=== PATIENT | male | born 1985 | race Caucasian/White ===

== ENCOUNTER 2017-08-21 11:35 | Emergency (ER) | payer SELFPAY ==
[2017-08-21 11:47] VITALS: BP 150/80
--- NOTE | 2017-08-21 11:51 | ER Document Report ---
HPI - HPI Patient complains to provider of: painful mouth sore Onset: Last week Onset/Duration: Persistent Pain Level: 2 Context: 31 yo male with painful mouth sore right side under tongue on the ginginva. Associated Symptoms: None Exacerbated by: Other - eating Relieved by: Denies Similar symptoms previously: No Recently seen / treated by doctor: No - ROS ROS below otherwise negative: Yes Systems Reviewed and Negative: Yes All other systems reviewed and negative Past Medical History - General Information source: Patient - Social History Smoking Status: Current Every Day Smoker Frequency of alcohol use: None Drug Abuse: None Lives with: Family Family History: Reviewed & Not Pertinent - Medical History Medical History: Negative Surgical Hx: Negative - Immunizations Hx Diphtheria, Pertussis, Tetanus Vaccination: Yes Vertical Provider Document - CONSTITUTIONAL Agree With Documented VS: Yes Exam Limitations: No Limitations General Appearance: No Apparent Distress - INFECTION CONTROL TRAVEL OUTSIDE OF THE [place] IN LAST 30 DAYS: No - HEENT Notes: inflamed ulcer under right side tongue on the base of the gingiva adjacent to 2nd molar - NECK Neck: Supple. negative: Lymphadenopathy-Right - NEURO Level of Consciousness: Awake - DERM Notes: see above Course - Vital Signs Vital signs: Temp Pulse Resp BP Pulse Ox 98.7 F 66 16 150/80 H 97 08/21/17 11:46 08/21/17 11:46 08/21/17 11:46 08/21/17 11:46 08/21/17 11:46 Discharge - Discharge Clinical Impression: right apthous ulcer Condition: Good Disposition: HOME, SELF-CARE Instructions: Mouth Sores ([facility]) Additional Instructions: Lidocaine to numb the canker sore (apthous ulcer) See the dentist if persists after 1 more week Tylenol for pain return to the emergency room any concerns or worsening of symptoms
[2017-08-21] MEDS ORDERED: LIDOCAINE 2% VISCOUS SOLN 20 ML UDCUP PO ONE (12:04)
== END 2017-08-21 12:20 | disposition home or self-care (01) ==
LOC: ER 11:35
DX: K12.0 Recurrent oral aphthae (principal); K08.89 Other specified disorders of teeth and supporting structures; K13.79 Other lesions of oral mucosa; F17.200 Nicotine dependence, unspecified, uncomplicated
CPT/HCPCS: 99282; J3490

== ENCOUNTER 2018-12-03 10:39 | Emergency (ER) | payer OTHER ==
[2018-12-03] MEDS ORDERED: LIDOCAINE 1%/EPINEPHRINE INJ 20 ML VIAL INJ ONE (12:30)
[2018-12-03] MEDS ORDERED: ACETAMINOPHEN 325 MG TABLET PO ONE (12:31)
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
[2018-12-03 13:30] VITALS: BP 121/78
== END 2018-12-03 13:30 | disposition home or self-care (01) ==
LOC: ER 10:39
DX: S09.90XA Unspecified injury of head, initial encounter (principal); S01.81XA Laceration without foreign body of other part of head, initial encounter; W20.8XXA Other cause of strike by thrown, projected or falling object, initial encounter; Y99.0 Civilian activity done for income or pay; F17.200 Nicotine dependence, unspecified, uncomplicated
CPT/HCPCS: 99283; 70486; 12011; J3490

== ENCOUNTER 2018-12-09 14:14 | Emergency (ER) | payer SELFPAY ==
[2018-12-09 14:19] VITALS: BP 133/82
--- NOTE | 2018-12-09 14:55 | ER Document Report ---
HPI - HPI Time Seen by Provider: 12/09/18 14:43 Pain Level: 0 Context: Patient is a 33-year-old male who presents to the emergency department with a chief complaint of suture removal. Patient states he had 3 sutures placed right below the left eye on Monday. Patient reports he has not had any drainage, swelling, redness or fever. Patient has no complaints. - CONSTITUTIONAL Constitutional: DENIES: Fever, Chills - EENT EENT: DENIES: Sore Throat, Ear Pain, Eye problems - NEURO Neurology: DENIES: Headache, Weakness, Vision blurred, Dizzinesss / Vertigo - CARDIOVASCULAR Cardiovascular: DENIES: Chest pain - RESPIRATORY Respiratory: DENIES: Trouble Breathing, Coughing - GASTROINTESTINAL Gastrointestinal: DENIES: Abdominal Pain, Black / Bloody Stools - URINARY Urinary: DENIES: Dysuria, Urgency, Frequency - MUSCULOSKELETAL Musculoskeletal: DENIES: Extremity pain Past Medical History - General Information source: Patient - Social History Smoking Status: Unknown if Ever Smoked Frequency of alcohol use: None Drug Abuse: None Lives with: Family Family History: Reviewed & Not Pertinent Patient has suicidal ideation: No Patient has homicidal ideation: No - Past Medical History Cardiac Medical History: Reports: None Pulmonary Medical History: Reports: None EENT Medical History: Reports: None Neurological Medical History: Reports: None Endocrine Medical History: Reports: None Renal/ Medical History: Reports: None. Denies: Hx Peritoneal Dialysis Malignancy Medical History: Reports None GI Medical History: Reports: None Musculoskeletal Medical History: Reports None Skin Medical History: Reports None Psychiatric Medical History: Reports: None Traumatic Medical History: Reports: None Infectious Medical History: Reports: None Surgical Hx: Negative - Immunizations Hx Diphtheria, Pertussis, Tetanus Vaccination: Yes Vertical Provider Document - CONSTITUTIONAL Agree With Documented VS: Yes Exam Limitations: No Limitations General Appearance: No Apparent Distress - INFECTION CONTROL TRAVEL OUTSIDE OF THE [place] IN LAST 30 DAYS: No - HEENT HEENT: Normocephalic Notes: Patient does have bruising of various stages of healing noted around the soft tissues of the eye. Patient does have a nicely healed laceration without was corrected with 3 sutures. There are no signs of an infection to include erythema, swelling or drainage. - NECK Neck: Normal Inspection - RESPIRATORY Respiratory: Breath Sounds Normal, No Respiratory Distress - CARDIOVASCULAR Cardiovascular: Regular Rate, Regular Rhythm - GI/ABDOMEN Gastrointestinal: Abdomen Soft - NEURO Level of Consciousness: Awake, Alert, Appropriate - DERM Integumentary: Warm, Dry Course - Re-evaluation Re-evalutation: 12/09/18 15:45 I did remove 3 sutures without any difficulty from the healed laceration below the left eye. Patient tolerated well. No active bleeding afterwards. Patient instructed to keep this area clean and dry and to monitor for signs of infection. - Vital Signs Vital signs: Temp Pulse Resp BP Pulse Ox 97.5 F 69 16 133/82 H 96 12/09/18 14:18 12/09/18 14:18 12/09/18 14:18 12/09/18 14:18 12/09/18 14:18 Discharge - Discharge Clinical Impression: Encounter for removal of sutures Condition: Stable Disposition: HOME, SELF-CARE Additional Instructions: Today you are seen in the emergency department for suture removal. The wound does appear to be healing very well without signs of infection. I did remove 3 sutures from the laceration below your eye. Please continue to monitor for signs and symptoms of infection to include swelling to the cheek, redness, drainage or foul-smelling odor. If you do have any of these symptoms please return the emergency department immediately.
== END 2018-12-09 15:41 | disposition home or self-care (01) ==
LOC: ER 14:14
DX: S01.112D Laceration without foreign body of left eyelid and periocular area, subsequent encounter (principal); X58.XXXD Exposure to other specified factors, subsequent encounter

== ENCOUNTER 2020-02-06 20:17 | Emergency (ER) | payer SELFPAY ==
[2020-02-06] MEDS ORDERED: PENICILLIN V POTASSIUM 500 MG TABLET PO ONE (21:05)
--- NOTE | 2020-02-06 21:05 | ER Document Report ---
HPI - HPI Patient complains to provider of: facial swelling Time Seen by Provider: 02/06/20 20:59 Context: 34-year-old male with no previous medical problems presents to the emergency room complaining of some left-sided facial swelling that started earlier today. States he has a history of multiple dental caries and dental issues. He denies any trauma or injury to his face. No fevers. Eating and drinking normally. States he took Aleve about an hour prior to arrival with some relief. No recent antibiotics. Associated Symptoms: None Exacerbated by: Denies Relieved by: Other - Aleve Similar symptoms previously: No Recently seen / treated by doctor: No - ROS Systems Reviewed and Negative: Yes All other systems reviewed and negative - CONSTITUTIONAL Constitutional: DENIES: Fever - EENT EENT: DENIES: Sore Throat, Ear Pain Notes: Facial swelling, dental pain - NEURO Neurology: DENIES: Headache, Weakness - RESPIRATORY Respiratory: DENIES: Trouble Breathing - DERM Skin Color: Normal, [place] Skin Problems: None Past Medical History - General Information source: Patient - Social History Smoking Status: Current Every Day Smoker - Vapes Frequency of alcohol use: None Drug Abuse: None Family History: Reviewed & Not Pertinent Renal/ Medical History: Denies: Hx Peritoneal Dialysis - Immunizations Hx Diphtheria, Pertussis, Tetanus Vaccination: Yes Vertical Provider Document - CONSTITUTIONAL Agree With Documented VS: Yes Exam Limitations: No Limitations General Appearance: Mild Distress - INFECTION CONTROL TRAVEL OUTSIDE OF THE [place] IN LAST 30 DAYS: No - HEENT HEENT: Normocephalic. negative: Pharyngeal Erythema, Tympanic Membrane Red, Tympanic Membrane Bulging Notes: There is a nonfluctuant abscess that is noted to the left upper frontal region of the gumline along tooth 9 through 11. There is mild swelling noted to the left upper lip. It is nontender to palpation. Widespread dental decay and missing teeth noted. Nose turbinates without erythema or swelling. Nontender to palpation of the frontal, ethmoid, and maxillary sinuses. - NECK Neck: Normal Inspection, Supple - RESPIRATORY Respiratory: Breath Sounds Normal, No Respiratory Distress, Chest Non-Tender - CARDIOVASCULAR Cardiovascular: Regular Rate, Regular Rhythm, No Murmur - MUSCULOSKELETAL/EXTREMETIES Musculoskeletal/Extremeties: FROM - NEURO Level of Consciousness: Awake, Alert, Appropriate Motor/Sensory: No Motor Deficit, No Sensory Deficit - DERM Integumentary: Warm, Dry, No Rash Notes: Mild swelling noted to the left upper lip. No obvious signs of cellulitis noted. Course - Re-evaluation Re-evalutation: 02/06/20 21:02 Counseled patient on diagnosis. Counseled on the importance of taking antibiotics as prescribed. Can continue with Tylenol, Motrin, or Aleve for the pain. Also counseled on the importance of outpatient follow-up with a dentist as soon as possible. Patient was given strict return to the emergency room guidelines. Return for any new or worsening symptoms. All questions were answered. Patient verbalized understanding and agrees with plan of care. 02/06/20 23:02 Discharge - Discharge Clinical Impression: Dental abscess, Pain, dental Condition: Stable Disposition: HOME, SELF-CARE Instructions: Dental Infection or Abscess ([facility]), Penicillin V K ([facility]), Toothache ([facility]) Additional Instructions: Take Tylenol and or Motrin or Aleve for pain. Take antibiotics as prescribed. Follow-up with the dentist as soon as possible. Return to the emergency room for any new or worsening symptoms. Prescriptions: Penicillin V Potassium [Penicillin Vk 500 mg Tablet] 500 mg PO QID #40 tablet Referrals: [facility] [Provider Group] - Follow up as needed
== END 2020-02-06 22:00 | disposition home or self-care (01) ==
LOC: ER 20:17
DX: K04.7 Periapical abscess without sinus (principal); K02.9 Dental caries, unspecified; F17.290 Nicotine dependence, other tobacco product, uncomplicated
CPT/HCPCS: 99283